=== PATIENT | female | born 1960 | race Hispanic/Latino ===

== ENCOUNTER 2018-05-06 15:22 | Emergency (ER) | payer OTHER ==
[2018-05-06 15:44] VITALS: RESP 18; O2SAT 99; BMI 35.3
--- NOTE | 2018-05-06 15:53 | ED PDOC ---
Arrival/HPI - General Chief Complaint: Lower Extremity Problem/Injury Time Seen by Provider: 05/06/18 15:40 Historian: Patient - History of Present Illness Narrative History of Present Illness (Text): 05/06/18 15:53 58yo female with no pmhx who present with complaint of left foot pain x 2days. Notes pain is localized to her plantar mid and front foot. Pain is worse with weight bearing. Report previous history but worse this time. states she took Ibuprofen 800mg this morning with temporary relieve. Denies trauma ,fever, wound , any other complaint. Past Medical History - Provider Review Nursing Documentation Reviewed: Yes - Infectious Disease Hx of Infectious Diseases: None - Tetanus Immunization Tetanus Immunization: Unknown - Pulmonary Hx Asthma: Yes - Musculoskeletal/Rheumatological Hx Arthritis: Yes (osteoarthritis) Hx Back Pain: Yes (chronic) Hx Herniated Disk: Yes (cervical fusion) Other/Comment: MUSCLE CRAMPS - Gastrointestinal Hx Gastroesophageal Reflux: Yes - Psychiatric Hx Depression: Yes Hx Emotional Abuse: No Hx Physical Abuse: No Hx Substance Use: No - Past Surgical History Past Surgical History: Non-Contributing - Surgical History Hx Hysterectomy: Yes Other/Comment: R hip sx - Anesthesia Hx Anesthesia: Yes Hx Anesthesia Reactions: No Hx Malignant Hyperthermia: No - Suicidal Assessment Feels Threatened In Home Enviroment: No Family/Social History - Physician Review Nursing Documentation Reviewed: Yes Family/Social History: Unknown Family HX Smoking Status: Never Smoked Hx Alcohol Use: No Hx Substance Use: No Hx Substance Use Treatment: No Allergies/Home Meds Allergies/Adverse Reactions: Allergies No Known Allergies Allergy (Verified 10/31/14 11:40) Home Medications: Home Meds Medication Instructions Recorded Confirmed Cyclobenzaprine HCl [Flexeril] 10 mg PO Q8 PRN 10/31/14 05/06/18 Alprazolam [Xanax] 1 tab PO HS 05/06/18 05/06/18 Budesonide/Formoterol Fumarate 1 puff IH DAILY 05/06/18 05/06/18 [Symbicort 80-4.5 Mcg Inhaler] Esomeprazole Magnesium [Nexium] 1 cap PO DAILY 05/06/18 05/06/18 Review of Systems - Physician Review All systems were reviewed & negative as marked: Yes - Review of Systems Constitutional: Normal Eyes: Normal ENT: Normal Respiratory: Normal Cardiovascular: Normal Gastrointestinal: Normal Genitourinary Female: Normal Musculoskeletal: Arthralgias (Left foot pain) Skin: Normal Neurological: Normal Endocrine: Normal Hemo/Lymphatic: Normal Psychiatric: Normal Physical Exam Vital Signs Reviewed: Yes Vital Signs Temp Pulse Resp BP Pulse Ox 05/06/18 17:40 98.6 F 82 18 123/69 99 05/06/18 15:34 98.5 F 94 H 18 128/77 99 Temperature: Afebrile Blood Pressure: Normal Pulse: Regular Respiratory Rate: Normal Appearance: Positive for: Well-Appearing, Non-Toxic, Comfortable Pain Distress: None Mental Status: Positive for: Alert and Oriented X 3 - Systems Exam Head: Present: Atraumatic, Normocephalic Pupils: Present: PERRL Extroacular Muscles: Present: EOMI Conjunctiva: Present: Normal Mouth: Present: Moist Mucous Membranes Neck: Present: Normal Range of Motion Respiratory/Chest: Present: Clear to Auscultation, Good Air Exchange. No: Respiratory Distress, Accessory Muscle Use Cardiovascular: Present: Regular Rate and Rhythm, Normal S1, S2. No: Murmurs Abdomen: No: Tenderness, Distention, Peritoneal Signs Back: Present: Normal Inspection Upper Extremity: Present: Normal Inspection. No: Cyanosis, Edema Lower Extremity: Present: Normal Inspection, NORMAL PULSES, Normal ROM, Tenderness (Distal left plantar foot), Neurovascularly Intact. No: Edema, Shalom 's Sign, Swelling, Erythema, Temperature Abnormalties Neurological: Present: GCS=15, CN II-XII Intact, Speech Normal Skin: Present: Warm, Dry, Normal Color. No: Rashes Psychiatric: Present: Alert, Oriented x 3, Normal Insight, Normal Concentration Medical Decision Making ED Course and Treatment: 05/06/18 20:15 Left foot xray - No acute fracture result was DW the pt. she was ambulatory. Her pain was controlled with medication in ED. she was DC home with Napjustina and refereed to a flame hardening machine operator. - RAD Interpretation Radiology Orders: 05/06/18 15:46 FOOT LEFT 3 VIEWS ROUTINE [RAD] Stat - Medication Orders Current Medication Orders: Discontinued Medications Ketorolac Tromethamine (Toradol) 60 mg IM STAT STA Stop: 05/06/18 16:24 Last Admin: 05/06/18 17:01 Dose: 60 mg MAR Pain Assessment Document 05/06/18 17:01 HI (Rec: 05/06/18 17:06 OH [id number]) Pain Reassessment Is this a pain reassessment? No Sleep Is patient sleeping during reassessment? No Presence of Pain Presence of Pain Yes Location Left, Right or Bilateral Left Pain Location Body Site Foot IM Administration Charges Document 05/06/18 17:01 OH (Rec: 05/06/18 17:06 OH [id number]) Injection Site MAR Injection Site Left Gluteus Shmuel Charges for Administration # of IM Administrations 1 Disposition/Present on Arrival - Present on Arrival Any Indicators Present on Arrival: No History of DVT/PE: No History of Uncontrolled Diabetes: No Urinary Catheter: No History of Decub. Ulcer: No History Surgical Site Infection Following: None - Disposition Have Diagnosis and Disposition been Completed?: Yes Diagnosis: Foot pain Disposition: HOME/ ROUTINE Disposition Time: 17:20 Patient Plan: Discharge Condition: STABLE Discharge Instructions (ExitCare): Muscle and Bone Pain (DC) Additional Instructions: Follow up with a flame hardening machine operator Return to Ed for any new or worsening symptoms Prescriptions: Naproxen [Naprosyn] 500 mg PO BID #20 tab Referrals: Randa Carver DO [Primary Care Provider] - Follow up with primary Pipo Sandoval DPM [Staff Provider] - Follow up with primary Forms: [employer] ([place]), WORK NOTE
--- NOTE | 2018-05-06 17:12 | RAD ---
PROCEDURE: Left Foot Radiographs. HISTORY: Pain. No history of recent/ related trauma provided COMPARISON: None. FINDINGS: BONES: Normal. No fracture. JOINTS: Multiple hammertoe deformities. SOFT TISSUES: Normal. OTHER FINDINGS: Pes cavum deformity. IMPRESSION: No acute findings related to/accounting for the clinical presentation.
[2018-05-06 17:53] VITALS: BP 123/69; PULSE 82; TEMP 98.6
== END 2018-05-06 17:40 | disposition home or self-care (01) ==
LOC: ED 15:22
DX: M79.672 Pain in left foot (principal)
CPT/HCPCS: 73630; 96372; 99284; J1885

== ENCOUNTER 2018-09-13 10:13 | Emergency (ER) | payer OTHER ==
[2018-09-13 10:30] VITALS: BMI 35.7
[2018-09-13] MEDS ORDERED: Meloxicam 7.5 MG TAB PO STA (10:46)
[2018-09-13] MEDS ORDERED: Lidocaine 5% Patch TD STA (10:47)
--- NOTE | 2018-09-13 11:45 | ED PDOC ---
Arrival/HPI - General Chief Complaint: Lower Extremity Problem/Injury Time Seen by Provider: 09/13/18 10:32 Historian: Patient - History of Present Illness Narrative History of Present Illness (Text): 09/13/18 11:54 58 yo F w/ PMH of R hip replacement done in 2014, reports of pain in the L buttock area radiating to the L hip, worse with movement and walking x 4 days, worse today. Patient reports that she felt as if her L leg was about to give out. Otherwise: (-) paresthesias, (-) weakness, (-) acute bowel or bladder dysfunction, (-) trauma, (-) injury, (-) fall, (-) other joint pain, (-) fever. Has history of prior back problem, she suffers from chronic low back pain and takes mobic bid, she adds that she has an appointment with her pain management doctor on 09/23/18. Past Medical History - Infectious Disease Hx of Infectious Diseases: None - Tetanus Immunization Tetanus Immunization: Unknown - Pulmonary Hx Asthma: Yes - Musculoskeletal/Rheumatological Hx Arthritis: Yes (osteoarthritis) Hx Back Pain: Yes (chronic) Hx Herniated Disk: Yes (cervical fusion) Other/Comment: MUSCLE CRAMPS - Gastrointestinal Hx Gastroesophageal Reflux: Yes - Psychiatric Hx Depression: Yes Hx Emotional Abuse: No Hx Physical Abuse: No Hx Substance Use: No - Past Surgical History Past Surgical History: Non-Contributing - Surgical History Hx Hysterectomy: Yes Other/Comment: R hip sx - Anesthesia Hx Anesthesia: Yes Hx Anesthesia Reactions: No Hx Malignant Hyperthermia: No - Suicidal Assessment Feels Threatened In Home Enviroment: No Family/Social History Family/Social History: Unknown Family HX Smoking Status: Never Smoked Hx Alcohol Use: No Hx Substance Use: No Hx Substance Use Treatment: No Allergies/Home Meds Allergies/Adverse Reactions: Allergies No Known Allergies Allergy (Verified 09/13/18 10:27) Home Medications: Home Meds Medication Instructions Recorded Confirmed Cyclobenzaprine HCl [Flexeril] 10 mg PO Q8 PRN 10/31/14 05/06/18 Alprazolam [Xanax] 1 tab PO HS 05/06/18 05/06/18 Budesonide/Formoterol Fumarate 1 puff IH DAILY 05/06/18 05/06/18 [Symbicort 80-4.5 Mcg Inhaler] Esomeprazole Magnesium [Nexium] 1 cap PO DAILY 05/06/18 05/06/18 Review of Systems - Review of Systems Constitutional: absent: Fatigue, Fevers Respiratory: absent: SOB, Cough Cardiovascular: absent: Chest Pain, Palpitations Gastrointestinal: absent: Abdominal Pain, Nausea, Vomiting Genitourinary Female: absent: Dysuria, Frequency, Hematuria Musculoskeletal: Arthralgias, Back Pain. absent: Neck Pain Skin: absent: Rash, Pruritis, Skin Lesions Neurological: absent: Headache, Dizziness Physical Exam - Physical Exam Narrative Physical Exam (Text): 09/13/18 11:57 GENERAL APPEARANCE: Patient is awake, alert, oriented x 3, in mild painful distress. SKIN: Warm, dry; (-) cyanosis. EYES: (-) conjunctival pallor. ENMT: Mucous membranes moist. NECK: (-) tenderness, (-) stiffness, (-) lymphadenopathy. CHEST AND RESPIRATORY: (-) rales, (-) rhonchi, (-) wheezes; breath sounds equal bilaterally. HEART AND CARDIOVASCULAR: (-) irregularity; (-) murmur, (-) gallop. ABDOMEN AND GI: Soft; (-) tenderness; (-) palpable mass. BACK: (-) paravertebral tenderness, (-) spasm, (-) direct bony tenderness, (-) deformity, (+) tenderness to the L sciatic notch. Straight leg raising (-) bilaterally. EXTREMITIES: (-) deformity. Distal pulses good bilaterally. NEURO AND PSYCH: Mental status as above. Intact sensation bilaterally; normal strength in extension of the knees, plantar and dorsiflexion of the toes. Vital Signs Temp Pulse Resp BP Pulse Ox 09/13/18 10:27 97.8 F 87 18 153/87 H 97 Medical Decision Making ED Course and Treatment: 09/13/18 11:41 Plan : - XR L spine - XR L hip - Mobic PO - Lidoderm patch XR L hip : +mild DJD, no fracture, as read by PA XR L spine : +moderate DJD, decrease in joint space in joint space between L5- S1, no fracture, as read by PA On reevaluation, patient reports that the pain is improving. On exam, patient remains awake alert and oriented 3 in no acute distress, sitting comfortably, she is in good spirits and is smiling. Based on history, exam and diagnostic results plan will be for outpatient follow up. XR results and Dx of sciatica d/w the patient. Advised to follow up with primary care physician and her pain management doctor in 1-2 days without fail. Advised to take medication as prescribed. Return to the emergency room at any time for any new or worsening symptoms. Patient states she fully agrees with and understands discharge instructions. States that she agrees with the plan and disposition. Verbalized and repeated discharge instructions and plan. I have given the patient opportunity to ask any additional questions. - RAD Interpretation Radiology Orders: 09/13/18 10:46 HIP MIN 2V W/ PELVIS LT [RAD] Stat LS SPINE WITH OBL > 18 YRS OLD [RAD] Stat - Medication Orders Current Medication Orders: Discontinued Medications Lidocaine (Lidoderm) 1 ea TD STAT STA Stop: 09/13/18 10:48 Last Admin: 09/13/18 11:39 Dose: 1 ea MAR Transdermal Patch Site Document 09/13/18 11:39 [email or web address] (Rec: 09/13/18 11:39 [email or web address] [id number]) Transdermal Patch Site Transdermal Patch Site Left Thigh Meloxicam (Mobic) 7.5 mg PO STAT STA Stop: 09/13/18 10:47 Last Admin: 09/13/18 11:38 Dose: 7.5 mg MAR Pain Assessment Document 09/13/18 11:38 [email or web address] (Rec: 09/13/18 11:39 [email or web address] [id number]) Pain Reassessment Is this a pain reassessment? No Sleep Is patient sleeping during reassessment? 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 Disposition/Present on Arrival - Present on Arrival Any Indicators Present on Arrival: No History of DVT/PE: No History of Uncontrolled Diabetes: No Urinary Catheter: No History of Decub. Ulcer: No History Surgical Site Infection Following: None - Disposition Have Diagnosis and Disposition been Completed?: Yes Diagnosis: Sciatica Disposition: HOME/ ROUTINE Disposition Time: 11:45 Patient Plan: Discharge Patient Problems: Current Active Problems Problem Status Onset Sciatica Acute Condition: STABLE Discharge Instructions (ExitCare): Sciatica (DC) Additional Instructions: Thank you for letting us take care of you today. You were treated for sciatica. The emergency medical care you received today was directed at your acute symptoms. If you were prescribed any medication, please fill it and take as directed. It may take several days for your symptoms to resolve. Return to the Emergency Department if your symptoms worsen, do not improve, or if you have any other problems. Please contact your primary care and your pain management doctor in 2 days for re-evaluation and follow up. Bring any paperwork you were given at discharge with you along with any medications you are taking to your follow up visit. Our treatment cannot replace ongoing medical care by a primary care provider (PCP) outside of the emergency department. Thank you for allowing the [facility] team to be part of your care today. If you had an X-Ray: A Radiologist will review the ED reading if any change in treatment is needed we will contact you. Prescriptions: Lidocaine 5% [Lidoderm] 1 ea TD Q12H PRN #30 patch PRN Reason: Pain, Moderate (4-7) Referrals: Randa Carver DO [Primary Care Provider] - Follow up with primary Forms: [employer] ([place]ian), WORK NOTE
[2018-09-13 12:15] VITALS: BP 139/70; PULSE 88; RESP 17; TEMP 98; O2SAT 98
--- NOTE | 2018-09-13 13:00 | RAD ---
Date of service: 09/13/2018 PROCEDURE: Radiographs of the Lumbar Spine. HISTORY: pain COMPARISON: No prior. FINDINGS: BONES: Normal alignment. No listhesis. No fracture. DISC SPACES: Mild narrowing of the L1-2 intervertebral disc space consistent with degenerative disc disease. The remaining intervertebral disc spaces are maintained in height. There are osteophytes seen about all of the intervertebral disc spaces consistent with generalized spondylosis. OTHER FINDINGS: None. IMPRESSION: Probable degenerative disc disease at L1-2. Otherwise unremarkable examination
--- NOTE | 2018-09-13 13:02 | RAD ---
PROCEDURE: Left Hip X-ray Radiographs. HISTORY: pain COMPARISON: None. FINDINGS: BONES: No acute fracture. JOINTS: Right hip arthroplasty. Left hip unremarkable. SOFT TISSUES: Normal. OTHER FINDINGS: None. IMPRESSION: Unremarkable left hip.
== END 2018-09-13 12:15 | disposition home or self-care (01) ==
LOC: ED 10:13
DX: M54.30 Sciatica, unspecified side (principal)